=== PATIENT | female | born 1960 | race American Indian/Alaskan Native ===

== ENCOUNTER 2017-03-26 12:26 | Outpatient (CLI) | payer OTHER ==
--- NOTE | 2017-03-26 15:08 | Mammography Report ---
BILATERAL DIGITAL SCREENING MAMMOGRAM with CAD: 03/26/17 12:26:00 CLINICAL: Routine screening. COMPARISON:03/25/16 FINDINGS: The breasts are almost entirely fatty. No mass, architectural distortion or suspicious calcifications. IMPRESSION: No mammographic evidence of malignancy. BI-RADS CATEGORY: 1 - - Negative RECOMMENDATION: Routine mammographic screening in one year. COMMENT: Patient follow-up letters are generated by our [employer] application.
== END 2017-03-26 12:27 | disposition home or self-care (01) ==
LOC: SPVWC 12:26
PROVIDERS: ATTEND Obstetrics & Gynecology
DX: Z12.31 Encounter for screening mammogram for malignant neoplasm of breast (principal)
CPT/HCPCS: 77067; G0202

== ENCOUNTER 2019-03-29 07:55 | Outpatient (CLI) | payer OTHER ==
--- NOTE | 2019-03-29 10:17 | Mammography Report ---
DIGITAL SCREENING MAMMOGRAM WITH CAD, 03/29/2019 INDICATION: Routine screening mammography. TECHNIQUE: Digital bilateral 2D mammography was obtained in the craniocaudal and mediolateral obliq ue projections. This examination was interpreted with the benefit of Computer-Aided Detection analysi s. COMPARISON: 03/27/2018 and mammograms going back to 03/03/2013 FINDINGS: Breast Density: There are scattered areas of fibroglandular density. A round partially circumscribed 8 mm density in the inner left breast is new and requires additional imaging. No architectural distortion or suspicious calcifications of the left breast. There is no mellisa dence of dominant mass, suspicious calcifications or architectural distortion in the right breast. IMPRESSION: A new partially circumscribed left focal asymmetry requiring additional imaging. Recommen d recall for targeted left breast ultrasound from 9-10 o'clock and a left diagnostic mammogram if nee ded. Follow up recommendation: Targeted ultrasound left breast. Category 0: Incomplete. Needs additional imaging evaluation and/or prior mammograms for comparison. A "normal" or negative report should not discourage follow up or biopsy of a clinically significant f inding. A written summary of these findings will be mailed to the patient. The patient will be entered into a mammography reporting system which will generate a reminder letter for the patient's next appointmen t at the appropriate interval. The [employer] recommends yearly mammograms starting at age 40 and continuing as l sergio as a woman is in good health. Breast MRI is recommended for women with an approximate 20-25% or greater lifetime risk of breast cancer, including women with a strong family history of breast or ova luzma cancer or who have been treated for Hodgkin's disease. Signer Name: Guillermo Rahman MD Signed: 03/29/2019 10:12 AM Workstation Name: [id number]
== END 2019-03-29 07:56 | disposition home or self-care (01) ==
LOC: SPVWC 07:55
PROVIDERS: ATTEND Obstetrics & Gynecology
DX: Z12.31 Encounter for screening mammogram for malignant neoplasm of breast (principal)
CPT/HCPCS: 77067

== ENCOUNTER 2019-08-04 08:04 | Outpatient (CLI) | payer BC ==
--- NOTE | 2019-08-04 09:14 | Mammography Report ---
LEFT DIGITAL DIAGNOSTIC MAMMOGRAM WITH CAD 08/04/2019 LEFT LIMITED BREAST ULTRASOUND INDICATION: Short-term follow-up of a circumscribed nodule. ABN MAMMO TECHNIQUE: Digital left mammographic imaging was performed. Limited ultrasound was performed. This e xamination was interpreted with the benefit of Computer-Aided Detection (CAD) analysis. COMPARISON: 04/29/2019 FINDINGS: Breast Density: There are scattered areas of fibroglandular density. MAMMOGRAPHIC FINDINGS: The previously described 7 mm round circumscribed inner posterior nodule is le ss dense but unchanged in size compared to the previous exam. No other significant finding. ULTRASOUND FINDINGS: Targeted ultrasound evaluation was performed of the area of interest. Ultrasou nd of the left breast demonstrated a subcutaneous oval circumscribed hypoechoic mass contiguous to th e skin at 9:30 o'clock 15 cm from the nipple. It measures 6 x 4 x 6 mm and correlates with the mammog raphic density. It has a tail which extends into the dermis. No other significant finding. IMPRESSION: A benign sebaceous cyst at 9:30 o'clock 15 cm from the nipple. Follow up recommendation: Routine yearly BI-RADS Category 2: Benign. A "normal" or negative report should not discourage follow up or biopsy of a clinically significant f inding. A written summary of these findings will be mailed to the patient. The patient will be entered into a mammography reporting system which will generate a reminder letter for the patient's next appointmen t at the appropriate interval. According to the [employer], yearly mammograms are recommended starting at age 40 and continuing as long as a woman is in good health. Breast MRI is recommended for women with an nahomi roximately 20-25% or greater lifetime risk of breast cancer, including women with a strong family his tory of breast or ovarian cancer and women who have been treated for Hodgkin's disease. Signer Name: Guillermo Rahman MD Signed: 08/04/2019 9:09 AM Workstation Name: [id number]
== END 2019-08-04 08:05 | disposition home or self-care (01) ==
LOC: MAMMO 08:04
PROVIDERS: ATTEND Obstetrics & Gynecology
DX: N60.82 Other benign mammary dysplasias of left breast (principal); N63.20 Unspecified lump in the left breast, unspecified quadrant

== ENCOUNTER 2020-07-24 08:17 | Outpatient (CLI) | payer BC ==
--- NOTE | 2020-07-24 09:49 | Mammography Report ---
DIGITAL SCREENING MAMMOGRAM WITH CAD, 07/24/2020 CLINICAL INFORMATION / INDICATION: Routine screening mammography. SCREENING MAMMO TECHNIQUE: Digital bilateral 2D mammography was obtained in the craniocaudal and mediolateral obliqu e projections. This examination was interpreted with the benefit of Computer-Aided Detection analysis . COMPARISON: 03/26/2017, 03/27/2018, 03/29/2019 FINDINGS: Breast Density: There are scattered areas of fibroglandular density. No dominant mass, suspicious calcifications, or architectural distortion in either breast. Stable nodule in the anterior left breast. There is a stable sebaceous cyst in the posterior medial l eft breast. IMPRESSION: No mammographic evidence of malignancy. Follow up recommendation: Routine yearly BI-RADS Category 2: Benign. A "normal" or negative report should not discourage follow up or biopsy of a clinically significant f inding. A written summary of these findings will be mailed to the patient. The patient will be entered into a mammography reporting system which will generate a reminder letter for the patient's next appointmen t at the appropriate interval. The [employer] recommends yearly mammograms starting at age 40 and continuing as l sergio as a woman is in good health. Breast MRI is recommended for women with an approximate 20-25% or greater lifetime risk of breast cancer, including women with a strong family history of breast or ova luzma cancer or who have been treated for Hodgkin's disease. Signer Name: Romel Devine MD Signed: 07/24/2020 9:44 AM Workstation Name: [id number]
== END 2020-07-24 08:18 | disposition home or self-care (01) ==
LOC: SPVWC 08:17
PROVIDERS: ATTEND Obstetrics & Gynecology
DX: Z12.31 Encounter for screening mammogram for malignant neoplasm of breast (principal); N64.89 Other specified disorders of breast
CPT/HCPCS: 77067

== ENCOUNTER 2021-07-25 14:05 | Outpatient (CLI) | payer BC ==
--- NOTE | 2021-07-26 11:49 | Mammography Report ---
DIGITAL SCREENING MAMMOGRAM WITH CAD, 07/25/2021 CLINICAL INFORMATION / INDICATION: Routine screening mammography. SCREENING MAMMO TECHNIQUE: Digital bilateral 2D mammography was obtained in the craniocaudal and mediolateral obliqu e projections. This examination was interpreted with the benefit of Computer-Aided Detection analysis . COMPARISON: July 24, 2020 FINDINGS: Breast Density: There are scattered areas of fibroglandular density. No dominant mass, suspicious calcifications, or architectural distortion in either breast. IMPRESSION: No mammographic evidence of malignancy. Follow up recommendation: Routine yearly BI-RADS Category 1: NEGATIVE A "normal" or negative report should not discourage follow up or biopsy of a clinically significant f inding. A written summary of these findings will be mailed to the patient. The patient will be entered into a mammography reporting system which will generate a reminder letter for the patient's next appointmen t at the appropriate interval. The [employer] recommends yearly mammograms starting at age 40 and continuing as l sergio as a woman is in good health. Breast MRI is recommended for women with an approximate 20-25% or greater lifetime risk of breast cancer, including women with a strong family history of breast or ova luzma cancer or who have been treated for Hodgkin's disease. Signer Name: Thor Jordan DO Signed: 07/26/2021 11:45 AM Workstation Name: [id number]
== END 2021-07-25 14:06 | disposition home or self-care (01) ==
LOC: SPVWC 14:05
PROVIDERS: ATTEND Obstetrics & Gynecology
DX: Z12.31 Encounter for screening mammogram for malignant neoplasm of breast (principal)
CPT/HCPCS: 77067